=== PATIENT | male | born 1965 | race Caucasian/White ===

== ENCOUNTER → 2025-07-15 | Outpatient (CLI) | payer OTHER ==
[2025-07-15 19:31] LABS: Creatinine, Urine Random 40.3 mg/dL (27.00-270.00); Microalb/Creat Ratio UR, Rand 202.481 mg/g (0.000-30.000); Microalbumin, Random Urine 81.6 mg/L (0.000-20.000)
== END | disposition home or self-care (01) ==
LOC: LAB 17:12 → LAB SHORT 17:12
PROVIDERS: Nurse Practitioner Family
DX: E11.65 Type 2 diabetes mellitus with hyperglycemia (principal)
CPT/HCPCS: 82043; 82570